=== PATIENT | female | born 1980 | race Caucasian/White ===

== ENCOUNTER 2020-12-10 08:16 | Outpatient (CLI) | payer BC | END 2020-12-10 08:17 | disposition home or self-care (01) | LOC: CSHMAMMO 08:16 | PROVIDERS: ATTEND Obstetrics & Gynecology | DX: Z12.31 Encounter for screening mammogram for malignant neoplasm of breast (principal) | CPT/HCPCS: 77063; 77067 ==

== ENCOUNTER 2023-01-06 10:24 | Outpatient (CLI) | payer BC | END 2023-01-06 10:25 | disposition home or self-care (01) | LOC: CSHMAMMO 10:24 | PROVIDERS: ATTEND Obstetrics & Gynecology | DX: Z12.31 Encounter for screening mammogram for malignant neoplasm of breast (principal) | CPT/HCPCS: 77063; 77067 ==

== ENCOUNTER 2024-10-21 08:40 | Emergency (ER) | payer BC ==
[2024-10-21] MEDS ORDERED: Ketorolac Tromethamine 30 MG (1 mL) VIAL ONE (09:11)
[2024-10-21] MEDS ORDERED: Dexamethasone 10 MG/ML VIAL ONE (09:11)
[2024-10-21] MEDS ORDERED: Lidocaine 4% Patch ONE (09:12)
[2024-10-21] MEDS ORDERED: Cyclobenzaprine 10 MG TAB ONE (09:12)
== END 2024-10-21 10:00 | disposition home or self-care (01) ==
LOC: CSHERS 08:40
DX: M54.50 Low back pain, unspecified (principal)
CPT/HCPCS: 96372; 99283; J1100; J1885